=== PATIENT | male | born 1980 | race American Indian/Alaskan Native ===

== ENCOUNTER 2020-01-20 09:18 | Observation (INO) | payer OTHER ==
[2020-01-20 10:25] LABS: Amphetamine Screen,Urine PRESUMPTIVE NEGATIVE; Benzodiazepines Screen,Urine PRESUMPTIVE NEGATIVE; Methadone Screen,Urine PRESUMPTIVE NEGATIVE; Opiate Screen,Urine PRESUMPTIVE NEGATIVE
[2020-01-20 10:34] LABS: Hematocrit 48.2 % (35.5-45.6); Hemoglobin 16.2 gm/dl (11.8-15.2); Mean Corpuscular HGB Conc 34 % (32-34); Mean Corpuscular Volume 94 fl (84-94); Platelet Count 324 K/mm3 (140-440); Red Blood Count 5.12 M/mm3 (3.65-5.03); Red Cell Distribution Width 13.3 % (13.2-15.2)
[2020-01-20 10:44] LABS: INR 1.03 (0.87-1.13)
[2020-01-20 10:58] LABS: Alanine Aminotransferase 22 units/L (7-56); Albumin 4.9 g/dL (3.9-5); BUN/Creatinine Ratio 11; Blood Urea Nitrogen 12 mg/dL (9-20); Calcium 9.6 mg/dL (8.4-10.2); Hemolysis Index 3
[2020-01-20 11:45] LABS: Cannabinoid Screen,Urine PRESUMPTIVE POSITIVE; Cocaine Screen,Urine PRESUMPTIVE POSITIVE
--- NOTE | 2020-01-20 11:55 | Emergency Department Report ---
HPI - General Chief Complaint: Overdose Time Seen by Provider: 01/20/20 11:27 - [facility] HPI: Room 26 The patient is a 39-year-old male present with a chief complaint of accidental acetaminophen overdose. The patient states he began having pain at the roof of his mouth 3 days ago. Patient denies any preceding trauma. Patient states the pain was intolerable but Advil helped. The patient states he purchased acetaminophen (8-hour extended release) and believes each pill was approximately 600 mg (650 mg). The patient states he consumed 30 of these pills between 07: 00 yesterday morning and 23: 00 last night to help with his mouth pain. Patient states that this morning he began to feel jittery had a upset stomach. Patient states he vomited 3 times which made him believe he took too much Tylenol. Patient subsequently came to the ED for evaluation. ED Past Medical Hx - Past Medical History Previous Medical History?: No - Surgical History Past Surgical History?: No - Family History Family history: no significant - Social History Smoking Status: Current Every Day Smoker (1/3 pack/day) Substance Use Type: Alcohol (Rarely), Marijuana ED Review of Systems ROS: Stated complaint: POSSIBLE OVERDOSE Other details as noted in HPI Constitutional: no symptoms reported ENT: other (Mouth pain) Respiratory: no symptoms reported Cardiovascular: denies: chest pain Endocrine: no symptoms reported Gastrointestinal: nausea, vomiting Musculoskeletal: denies: back pain Physical Exam - Physical Exam Vital Signs: Vital Signs 01/20/20 09:33 Temperature 98.0 F Pulse Rate 91 H Respiratory 20 Rate Blood Pressure 131/107 O2 Sat by Pulse 100 Oximetry Physical Exam: GENERAL: The patient is well-developed well-nourished male sitting on stretcher not appear to be in acute distress. [] HEENT: Normocephalic. Atraumatic. Extraocular motions are intact. Patient has moist mucous membranes. NECK: Supple. Trachea midline CHEST/LUNGS: There is no respiratory distress noted. HEART/CARDIOVASCULAR: Regular. There is no tachycardia. There is no gallop rub or murmur. ABDOMEN: Abdomen is soft, nontender. Patient has normal bowel sounds. There is no abdominal distention. SKIN: There is no rash. There is no edema. There is no diaphoresis. NEURO: The patient is awake, alert, and oriented. The patient is cooperative. The patient has normal speech MUSCULOSKELETAL: There is no evidence of acute injury. ED Course Vital Signs 01/20/20 09:33 Temperature 98.0 F Pulse Rate 91 H Respiratory 20 Rate Blood Pressure 131/107 O2 Sat by Pulse 100 Oximetry - Consultations Consultation #1: 01/20/20 11:54 Poison control called 01/20/20 12:15 Case discussed with Caitlyn Arevalo who graphic design intern discussed the case with her writing center director. Recommends initiating Acetadote 21-hour protocol. Recommends redrawing a CMP at 20: 00 and 2 hours prior to completion of the 21-hour protocol to call poison control back. ED Medical Decision Making - Lab Data Result diagrams: 01/20/20 10:05 01/20/20 10:05 Laboratory Tests 01/20/20 01/20/20 01/20/20 09:58 10:05 10:05 WBC 9.2 RBC 5.12 H Hgb 16.2 H Hct 48.2 H MCV 94 MCH 32 MCHC 34 RDW 13.3 Plt Count 324 PT INR APTT Sodium 139 Potassium 3.7 Chloride 99.7 Carbon Dioxide 22 Anion Gap 21 BUN 12 Creatinine 1.1 Estimated GFR > 60 BUN/Creatinine Ratio 11 Glucose 101 H Calcium 9.6 Total Bilirubin 0.50 AST 19 ALT 22 Alkaline Phosphatase 68 Total Protein 8.0 Albumin 4.9 Albumin/Globulin Ratio 1.6 Salicylates Urine Opiates Screen Presumptive negative Urine Methadone Screen Presumptive negative Acetaminophen Ur Barbiturates Screen Presumptive negative Ur Phencyclidine Scrn Presumptive negative Ur Amphetamines Screen Presumptive negative U Benzodiazepines Scrn Presumptive negative Urine Cocaine Screen Presumptive positive U Marijuana (THC) Screen Presumptive positive Drugs of Abuse Note Disclamer Plasma/Serum Alcohol 01/20/20 01/20/20 01/20/20 10:05 10:05 10:05 WBC RBC Hgb Hct MCV MCH MCHC RDW Plt Count PT 13.6 INR 1.03 APTT 31.0 Sodium Potassium Chloride Carbon Dioxide Anion Gap BUN Creatinine Estimated GFR BUN/Creatinine Ratio Glucose Calcium Total Bilirubin AST ALT Alkaline Phosphatase Total Protein Albumin Albumin/Globulin Ratio Salicylates < 0.3 L Urine Opiates Screen Urine Methadone Screen Acetaminophen 16.0 Ur Barbiturates Screen Ur Phencyclidine Scrn Ur Amphetamines Screen U Benzodiazepines Scrn Urine Cocaine Screen U Marijuana (THC) Screen Drugs of Abuse Note Plasma/Serum Alcohol 01/20/20 10:05 WBC RBC Hgb Hct MCV MCH MCHC RDW Plt Count PT INR APTT Sodium Potassium Chloride Carbon Dioxide Anion Gap BUN Creatinine Estimated GFR BUN/Creatinine Ratio Glucose Calcium Total Bilirubin AST ALT Alkaline Phosphatase Total Protein Albumin Albumin/Globulin Ratio Salicylates Urine Opiates Screen Urine Methadone Screen Acetaminophen Ur Barbiturates Screen Ur Phencyclidine Scrn Ur Amphetamines Screen U Benzodiazepines Scrn Urine Cocaine Screen U Marijuana (THC) Screen Drugs of Abuse Note Plasma/Serum Alcohol < 0.01 - EKG Data -: EKG Interpreted by Me EKG shows normal: sinus rhythm Rate: normal - EKG Data When compared to previous EKG there are: previous EKG unavailable Interpretation: other (No ischemic changes seen. QRS 80) - Differential Diagnosis Acetaminophen overdose Critical care attestation.: If time is entered above; I have spent that time in minutes in the direct care o f this critically ill patient, excluding procedure time. ED Disposition Clinical Impression: Acetaminophen overdose, Mouth pain Disposition: OP ADMIT IP TO THIS HOSP Is pt being admited?: Yes Does the pt Need Aspirin: No Condition: Fair Referrals: PRIMARY CARE, [Primary Care Provider] - 3-5 Days Time of Disposition: 12:40 (Hospitalist paged (Dr. Juarez))
[2020-01-20] MEDS ORDERED: ACETADOTE IV ONE ×3 (12:22→17:23)
[2020-01-20] MEDS ORDERED: WATER IV ONE ×3 (12:22→17:23)
[2020-01-20] MEDS ORDERED: DEXTROSE 5% IV ONE ×3 (12:22→17:23)
[2020-01-20] MEDS ORDERED: ONDANSETRON 4 MG/2 ML INJ IV PRN (12:54)
[2020-01-20] MEDS ORDERED: ALBUTEROL 2.5 MG/3 ML NEBU IH PRN (12:54)
--- NOTE | 2020-01-20 13:25 | History and Physical Report ---
History of Present Illness Date of admission: 01/20/20 12:54 Chief complaint: My mouth is hurting History of present illness: 39-year-old male with Nicotine Dependence, cocaine dependence, multiple dental cavities presents to ED for evaluation. Patient states that he had experienced oral pain for the past 3 days with persistent symptoms over the same timeframe. Patient states that he took a total of thirty Tylenol 650 mg tablets over a 16- hour timeframe in an effort to control his mouth pain. Patient states that he knows it was stupid but he "just wanted some relief". Patient states that mouth pain is 5/10, intermittent, shoots toward the top of his mouth, worsened with mastication. Patient transported to [facility] via private vehicle for further evaluation and care. Patient seen and evaluated in the emergency department. Lab and imaging studies reviewed. Patient found to have acetaminophen toxicity. Poison control was notified in the emergency department and recommended in itiating Acetadote 21-hour protocol. Recommends redrawing a CMP at 20: 00 and 2 hours prior to completion of the 21-hour protocol to call poison control back. Patient placed in observation status and admitted to medical floor for further monitoring and evaluation due to high risk for hepatic complication. Patient denies fever, chills, chest pain, palpitations, bright red blood per rectum, productive cough, skin rash, recent ill contacts. Patient denies suicidal/homicidal ideation. Patient denies desire to harm himself or others. No prior admission for review. No medication listed at time of admission for reconciliation. Past History Past Medical History: other (Nicotine dependence) Past Surgical History: No surgical history, Other (Reviewed) Social history: single Family history: no significant family history (Reviewed) Medications and Allergies Allergies Allergy/AdvReac Type Severity Reaction Status Date / Time No Known Allergies Allergy Unverified 01/20/20 09:19 Active Meds: Active Medications Albuterol (Proventil) 2.5 mg IH Q4HRT PRN PRN Reason: Shortness Of Breath Acetylcysteine 3,343 mg/ (Dextrose) 516.715 mls @ 125 mls/hr IV ONCE ONE Stop: 01/20/20 17:22 Acetylcysteine 6,686 mg/ (Dextrose) 1,033.43 mls @ 62.5 mls/hr IV ONCE ONE Stop: 01/21/20 09:22 Ondansetron HCl (Zofran) 4 mg IV Q8H PRN PRN Reason: Nausea And Vomiting Sodium Chloride (Sodium Chloride Flush Syringe 10 Ml) 10 ml IV BID YECENIA Sodium Chloride (Sodium Chloride Flush Syringe 10 Ml) 10 ml IV PRN PRN PRN Reason: LINE FLUSH Review of Systems Constitutional: no weight loss, no weight gain, no fever, no chills Ears, nose, mouth and throat: no ear pain, no ear discharge, no tinnitis, no decreased hearing, no nose pain, no nasal congestion Cardiovascular: no chest pain, no palpitations, no edema Respiratory: no cough, no cough with sputum, no excessive sputum, no hemoptysis, no shortness of breath Gastrointestinal: no abdominal pain, no nausea, no vomiting, no diarrhea, no change in bowel habits Genitourinary Male: no dysuria, no hematuria, no flank pain, no discharge, no urinary frequency, no urinary hesitancy, no nocturia Rectal: no pain, no incontinence, no bleeding Musculoskeletal: no neck stiffness, no neck pain, no shooting arm pain, no arm numbness/tingling, no low back pain, no shooting leg pain Integumentary: no rash, no pruritis, no redness, no sores, no jaundice, no boils Neurological: no head injury, no transient paralysis, no paralysis, no weakness, no parathesias, no numbness Psychiatric: no anxiety, no change in appetite, no change in libido, no suicidal ideation, no disorientation, no irritability, no sadness/tearfullness, no mood swings Endocrine: no cold intolerance, no heat intolerance, no polyphagia, no excessive thirst, no polyuria, no nocturia Hematologic/Lymphatic: no easy bruising, no easy bleeding, no lymphadenopathy Allergic/Immunologic: no urticaria, no wheezing, no persistent infections, no angioedema Exam - Constitutional Vitals: Temp Pulse Resp BP Pulse Ox 98.0 F 70 11 L 143/79 100 01/20/20 09:33 01/20/20 12:11 01/20/20 12:11 01/20/20 12:11 01/20/20 12:11 General appearance: Present: mild distress - EENT Eyes: Present: PERRL ENT: hearing intact, clear oral mucosa, poor dentition - Neck Neck: Present: supple, normal ROM - Respiratory Respiratory effort: normal Respiratory: bilateral: CTA - Cardiovascular Heart Sounds: Present: S1 & S2. Absent: rub, click - Extremities Extremities: pulses symmetrical, No edema Peripheral Pulses: within normal limits - Abdominal General gastrointestinal: Present: soft, non-tender, non-distended, normal bowel sounds Male genitourinary: Present: normal - Integumentary Integumentary: Present: clear, warm, dry - Musculoskeletal Musculoskeletal: gait normal, strength equal bilaterally - Psychiatric Psychiatric: appropriate mood/affect, intact judgment & insight - Neurologic Neurologic: CNII-XII intact, moves all extremities Results - Labs CBC & Chem 7: 01/20/20 10:05 01/20/20 10:05 Labs: Abnormal lab results 01/20/20 01/20/20 01/20/20 Range/Units 10:05 10:05 10:05 RBC 5.12 H (3.65-5.03) M/mm3 Hgb 16.2 H (11.8-15.2) gm/dl Hct 48.2 H (35.5-45.6) % Glucose 101 H (75-100) mg/dL Salicylates < 0.3 L (2.8-20.0) mg/dL Assessment and Plan - Patient Problems (1) Acetaminophen overdose Current Visit: Yes Status: Acute Qualifiers: Encounter type: initial encounter Plan to address problem: Poison control notified in ED, Acetadote 21-hour protocol, repeat BMP at 2000 hrs. as well as 2 hours prior to completion of 24-hour protocol, re-notified poison control. (2) Poor dentition Current Visit: Yes Status: Acute Plan to address problem: Outpatient evaluation, supportive care. Patient counseled regarding cocaine ingestion. (3) Cocaine dependence Current Visit: Yes Status: Acute Plan to address problem: Behavior change counseling +15 minutes, supportive care. (4) DVT prophylaxis Current Visit: Yes Status: Acute Plan to address problem: SCD to bilateral lower extremities while in bed, patient is amatory.
[2020-01-20 19:54] LABS: Alanine Aminotransferase 19 units/L (7-56); Albumin 4.8 g/dL (3.9-5); BUN/Creatinine Ratio 12; Blood Urea Nitrogen 13 mg/dL (9-20); Calcium 9.6 mg/dL (8.4-10.2); Hemolysis Index 8
[2020-01-20] MEDS ORDERED: NICOTINE 21 MG/24 HR PATCH TD SCH (22:00)
[2020-01-21 05:43] LABS: Basophils % (Auto) 0.4 % (0.0-1.8); Eosinophils # (Auto) 0.1 K/mm3 (0.0-0.4); Eosinophils % (Auto) 0.8 % (0.0-4.3); Hematocrit 47.1 % (35.5-45.6); Hemoglobin 15.9 gm/dl (11.8-15.2); Lymphocytes # (Auto) 2.1 K/mm3 (1.2-5.4); Lymphocytes % (Auto) 22.6 % (13.4-35.0); Mean Corpuscular HGB Conc 34 % (32-34); Mean Corpuscular Volume 94 fl (84-94); Monocytes # (Auto) 0.7 K/mm3 (0.0-0.8); Monocytes % (Auto) 7.2 % (0.0-7.3); Platelet Count 304 K/mm3 (140-440); Red Cell Distribution Width 13.6 % (13.2-15.2)
[2020-01-21 06:05] LABS: Alanine Aminotransferase 20 units/L (7-56); Albumin 4.6 g/dL (3.9-5); BUN/Creatinine Ratio 12; Blood Urea Nitrogen 13 mg/dL (9-20); Calcium 9.6 mg/dL (8.4-10.2); Hemolysis Index 6
[2020-01-21 10:27] LABS: INR 1.09 (0.87-1.13)
--- NOTE | 2020-01-21 13:12 | Discharge Summary ---
Providers - Providers Date of Admission: 01/20/20 12:54 Attending physician: JOANNE BOGGS MD Primary care physician: [employer]PER Hospitalization Reason for admission: Overdose Condition: Stable Hospital course: 39-year-old male with Nicotine Dependence, cocaine dependence, multiple dental cavities presents to ED for evaluation. Patient states that he had experienced oral pain for the past 3 days with persistent symptoms over the same timeframe. Patient states that he took a total of thirty Tylenol 650 mg tablets over a 16- hour timeframe in an effort to control his mouth pain. Patient states that he knows it was stupid but he "just wanted some relief". Patient states that mouth pain is 5/10, intermittent, shoots toward the top of his mouth, worsened with mastication. Patient transported to [facility] via private vehicle for further evaluation and care. Patient seen and evaluated in the emergency department. Lab and imaging studies reviewed. Patient found to have acetaminophen toxicity. Poison control was notified in the emergency department and recommended initiating Acetadote 21-hour protocol. Recommends redrawing a CMP at 20: 00 and 2 hours prior to completion of the 21-hour protocol to call poison control back. Patient placed in observation status and admitted to medical floor for further monitoring and evaluation due to high risk for hepatic complication. Patient denies fever, chills, chest pain, palpitations, bright red blood per rectum, productive cough, skin rash, recent ill contacts. Patient denies suicidal/homicidal ideation. Patient denies desire to harm himself or others. No prior admission for review. No medication listed at time of admission for reconciliation. Patient was treated with antidote and again was discussed life style choices and he again states he is not suicidal or homicidal. Tylenol level was normalized. Poison control notified in ED, Acetadote 21-hour protocol, COUNSELLING PROVIDED AGAIN 30 MINS SPENT ON COUNSELLING (1) Acetaminophen overdose (2) Poor dentition (3) Cocaine dependence 4) tobacco use disorder Disposition: - TO HOME OR SELFCARE Time spent for discharge: 35 mins Core Measure Documentation - Palliative Care Palliative Care/ Comfort Measures: Not Applicable - Core Measures Any of the following diagnoses?: none Exam - Physical Exam Narrative exam: VITAL SIGNS: Reviewed. GENERAL: The patient appears normally developed, CACHETIC, Vital signs as documented. HEAD: No signs of head trauma. EYES: Pupils are equal. Extraocular motions intact. EARS: Hearing grossly intact. MOUTH: Oropharynx with poor dentition. NECK: No adenopathy, no JVD. CHEST: Chest with clear breath sounds bilaterally. No wheezes, rales, or rhonchi. CARDIAC: Regular rate and rhythm. S1 and S2, without murmurs, gallops, or rubs. VASCULAR: No Edema. Peripheral pulses normal and equal in all extremities. ABDOMEN: Soft, non tender and non distended. No rebound or guarding, and no masses palpated. Bowel Sounds normal. MUSCULOSKELETAL: Good range of motion of all major joints. Extremities without clubbing, cyanosis or edema. NEUROLOGIC EXAM: Alert and oriented x 3 No focal sensory or strength deficits. Speech normal. Follows commands. PSYCHIATRIC: Mood normal. SKIN: detial exam as documented in skin assessment - Constitutional Vitals: Temp Pulse Resp BP Pulse Ox 98.1 F 83 18 143/77 100 01/21/20 11:15 01/21/20 11:15 01/21/20 11:15 01/21/20 11:15 01/21/20 11:15 Plan Activity: advance as tolerated, fall precautions Diet: low fat Special Instructions: record daily weights, record daily BP diary Additional Instructions: substance abuse cessation Follow up with: PRIMARY CAREMD [Primary Care Provider] - 3-5 Days [facility] [Outside] - 7 Days
[2020-01-21 15:05] LABS: INR 1.04 (0.87-1.13)
[2020-01-21 15:09] LABS: Alanine Aminotransferase 27 units/L (7-56)
[2020-01-21 16:48] VITALS: BP 122/81
== END 2020-01-21 18:20 | disposition home or self-care (01) ==
LOC: ED 09:18 → 3A 12:54
PROVIDERS: ADMIT Internal Medicine; ATTEND Internal Medicine
DX: T39.1X1A Poisoning by 4-Aminophenol derivatives, accidental (unintentional), initial encounter (principal); K00.7 Teething syndrome; F14.20 Cocaine dependence, uncomplicated; K13.79 Other lesions of oral mucosa
CPT/HCPCS: 36415; 80053; 80307; 84450; 84460; 85025; 85027; 85610; 85730; 93005; 93010; 96365; 96366; 99284; G0378; J0132; J7060; J7070; 80320; G0480